=== PATIENT | female | born 1945 | race Caucasian/White ===

== ENCOUNTER 2017-07-29 16:08 | Inpatient (IN) | payer MEDICARE, MEDICAID, OTHER ==
[2017-07-29 18:19] LABS: ADD MAN DIFF? NO
[2017-07-29 18:23] LABS: WHITE BLOOD COUNT 9.9 10^3/ul (4.8-10.8)
[2017-07-29 18:23] LABS: BASOPHIL # 0.1 10^3/ul (0.0-0.1); BASOPHILS % 0.6 % (0.0-2.0); EOSINOPHILS # 0.5 10^3/ul (0.0-0.5); HEMATOCRIT 36.5 % (37.0-47.0); HEMOGLOBIN 10.8 g/dl (12.0-16.0); LYMPHOCYTES # 1.5 10^3/ul (0.8-2.9); MEAN CORPUSCULAR HEMOGLOBIN 26.5 pg (29.0-33.0); MEAN CORPUSCULAR HGB CONC 29.6 g/dl (32.0-37.0); MEAN CORPUSCULAR VOLUME 89.7 fl (82.0-101.0); MEAN PLATELET VOLUME 10.7 fl (7.4-10.4); MONOCYTE # 0.7 10^3/ul (0.3-0.9); MONOCYTES % 7.5 % (0.0-11.0); NEUTROPHIL # 7.1 10^3/ul (1.6-7.5); NEUTROPHILS % 71.7 % (39.0-77.0); PLATELET COUNT 211 10^3/UL (140-415); RED BLOOD COUNT 4.07 10^6/ul (4.20-5.40); RED CELL DISTRIBUTION WIDTH 18.4 % (11.5-14.5)
[2017-07-29] MEDS: FUROSEMIDE 40 MG INJ IV (18:41)
[2017-07-29] MEDS: NITROGLYCERIN 2% 1 GM OINT PKT TD (18:42)
[2017-07-29] MEDS: ASPIRIN 81 MG TAB PO (18:42)
[2017-07-29] MEDS: NITROGLYCERIN (SL) 0.4 MG TAB SL (18:42)
[2017-07-29 18:48] LABS: ANION GAP 13 (8-16); BLOOD UREA NITROGEN 35 mg/dl (7-20); CALCIUM 9.4 mg/dl (8.4-10.2); CARBON DIOXIDE 35 mmol/L (21-31); CHLORIDE 103 mmol/L (97-110); CREATININE 0.96 mg/dl (0.44-1.00); GLUCOSE 154 mg/dl (70-220); POTASSIUM 4.8 mmol/L (3.5-5.1); SODIUM 146 mmol/L (135-144)
[2017-07-29 19:02] LABS: TROPONIN-I < 0.012 ng/ml (0.000-0.120)
[2017-07-29] MEDS ORDERED: ACETAMINOPHEN 325 MG TAB PO (19:30)
[2017-07-29] MEDS ORDERED: ONDANSETRON 4 MG INJ IV ×2 (19:30→21:30)
[2017-07-29] MEDS: LISINOPRIL 10 MG TAB PO (21:53)
[2017-07-29] MEDS ORDERED: GLUCOSE GEL 15 GRAM TUBE PO ×2 (22:15)
[2017-07-29] MEDS ORDERED: GLUCOSE GEL 15 GRAM TUBE BUCCAL (22:15)
[2017-07-29] MEDS ORDERED: GLUCAGON 1 MG INJ IM (22:15)
[2017-07-29] MEDS ORDERED: DEXTROSE 50% 50 ML SYRINGE IV ×2 (22:15)
[2017-07-29 22:48] LABS: CHOLESTEROL 73 mg/dl (100-200)
[2017-07-29 22:48] LABS: CHOL/HDL RATIO 1.9 RATIO; HDL CHOLESTEROL 38 mg/dl (33-92); LDL CHOLESTEROL,CALCULATED 25 mg/dl; TRIGLYCERIDES 51 mg/dl (0-149)
[2017-07-29] MEDS: GABAPENTIN 300 MG CAP PO (22:53)
[2017-07-29] MEDS: APIXABAN 5 MG TABLET PO (22:54)
[2017-07-29 22:59] LABS: TROPONIN-I 0.013 ng/ml (0.000-0.120)
[2017-07-29 23:06] LABS: FREE T4 (FREE THYROXINE) 1.13 ng/dl (0.78-2.44)
[2017-07-30 00:17] LABS: CREATINE KINASE 31 IU/L (23-200)
[2017-07-30 00:28] LABS: CK INDEX 2.5; CK-MB 0.77 ng/ml (0.0-2.4); TROPONIN-I 0.013 ng/ml (0.000-0.120)
[2017-07-30] MEDS: ACCU-CHEK XX (02:03)
[2017-07-30] MEDS: FUROSEMIDE 20 MG TAB PO ×2 (05:55→17:54)
[2017-07-30 06:49] LABS: MAGNESIUM 1.4 mg/dl (1.7-2.5)
[2017-07-30 06:50] LABS: PHOSPHORUS 4.6 mg/dl (2.5-4.9)
[2017-07-30 06:52] LABS: CK INDEX 2.6; CREATINE KINASE 27 IU/L (23-200); TROPONIN-I 0.014 ng/ml (0.000-0.120)
[2017-07-30] MEDS: POTASSIUM CHLORIDE (SR) 20 MEQ TAB PO (08:36)
[2017-07-30] MEDS: ASPIRIN (EC) 81 MG TAB PO (08:36)
[2017-07-30] MEDS: APIXABAN 5 MG TABLET PO ×2 (08:36→20:40)
[2017-07-30] MEDS: DILTIAZEM (CD) 120 MG CAP PO (08:37)
[2017-07-30] MEDS ORDERED: ENOXAPARIN 40 MG/0.4 ML SYG SC (09:00)
[2017-07-30] MEDS: LISINOPRIL 10 MG TAB PO ×2 (09:30→20:40)
[2017-07-30] MEDS: INSULIN ASPART [NOVOLOG] 3 ML PEN SC ×4 (09:47→20:50)
[2017-07-30 13:15] LABS: INR 1.44; PROTIME 17.8 Sec (11.9-14.9); PT RATIO 1.4
[2017-07-30 13:16] LABS: PARTIAL THROMBOPLASTIN TIME 41.1 Sec (25.0-35.0)
[2017-07-30 13:49] LABS: B-TYPE NATRIURETIC PEPTIDE 8390 PG/ML (0-125)
[2017-07-30] MEDS: MAGNESIUM SULFATE 2 GM/50 ML 50 ML IVPB (16:31)
[2017-07-30] MEDS: ATORVASTATIN 40 MG TAB PO (20:39)
[2017-07-30] MEDS: GABAPENTIN 300 MG CAP PO (20:40)
[2017-07-31] MEDS: ACCU-CHEK XX (02:00)
[2017-07-31] MEDS: FUROSEMIDE 20 MG TAB PO ×2 (05:55→17:30)
[2017-07-31 07:28] LABS: ADD MAN DIFF? NO
[2017-07-31 07:37] LABS: BASOPHILS % 0.5 % (0.0-2.0); EOSINOPHILS # 0.3 10^3/ul (0.0-0.5); EOSINOPHILS % 3.7 % (0.0-7.0); HEMATOCRIT 32.6 % (37.0-47.0); HEMOGLOBIN 9.6 g/dl (12.0-16.0); LYMPHOCYTES % 13.6 % (15.0-51.0); MEAN CORPUSCULAR HEMOGLOBIN 26.4 pg (29.0-33.0); MEAN CORPUSCULAR HGB CONC 29.4 g/dl (32.0-37.0); MEAN CORPUSCULAR VOLUME 89.6 fl (82.0-101.0); MEAN PLATELET VOLUME 12.5 fl (7.4-10.4); MONOCYTE # 0.6 10^3/ul (0.3-0.9); MONOCYTES % 8.6 % (0.0-11.0); NEUTROPHIL # 5.5 10^3/ul (1.6-7.5); NEUTROPHILS % 73.3 % (39.0-77.0); PLATELET COUNT 162 10^3/UL (140-415); RED BLOOD COUNT 3.64 10^6/ul (4.20-5.40); RED CELL DISTRIBUTION WIDTH 18.3 % (11.5-14.5)
[2017-07-31 07:37] LABS: WHITE BLOOD COUNT 7.5 10^3/ul (4.8-10.8)
[2017-07-31 08:07] LABS: ANION GAP 11 (8-16); BLOOD UREA NITROGEN 35 mg/dl (7-20); CALCIUM 8.6 mg/dl (8.4-10.2); CARBON DIOXIDE 38 mmol/L (21-31); CHLORIDE 101 mmol/L (97-110); GLUCOSE 120 mg/dl (70-220); POTASSIUM 4.4 mmol/L (3.5-5.1); SODIUM 146 mmol/L (135-144)
[2017-07-31 08:08] LABS: MAGNESIUM 1.7 mg/dl (1.7-2.5)
[2017-07-31] MEDS: INSULIN ASPART [NOVOLOG] 3 ML PEN SC ×4 (08:10→20:40)
[2017-07-31] MEDS: APIXABAN 5 MG TABLET PO ×2 (09:33→20:33)
[2017-07-31] MEDS: DILTIAZEM (CD) 120 MG CAP PO (09:33)
[2017-07-31] MEDS: LISINOPRIL 10 MG TAB PO (09:34)
[2017-07-31] MEDS: POTASSIUM CHLORIDE (SR) 20 MEQ TAB PO (09:34)
[2017-07-31] MEDS: ASPIRIN (EC) 81 MG TAB PO (09:34)
[2017-07-31 18:30] LABS: AADO2 Arterial 70.6 mmHg (7.0-24.0); Arterial Base Excess 6.8 mmol/L (-3.0-3); Arterial Blood Gas Oxygen Sat 95.7 mmHG (95.0-98.0); Arterial Fraction of Oxyhgb 94.5 % (93.0-99.0); Arterial HCO3 32.5 mmol/L (22.0-26.0); Arterial MetHb 0.3 % (0.0-1.5); Arterial Total Hemglobin 11.1 g/dl (12.0-18.0); Arterial pCO2 51.7 mmhg (35-45); MODE NASAL CANNULA; Site Right Radial
[2017-07-31 18:59] LABS: ADD UMIC YES; UR ASCORBIC ACID NEGATIVE (NEGATIVE); UR BACTERIA FEW /HPF (NONE SEEN); UR BILIRUBIN (Dip) NEGATIVE (NEGATIVE); UR BLOOD (Dip) 2+ mg/dL (NEGATIVE); UR CLARITY TURBID (CLEAR); UR COLOR YELLOW (YELLOW); UR GLUCOSE (Dip) NEGATIVE (NEGATIVE); UR KETONES (Dip) NEGATIVE (NEGATIVE); UR LEUKOCYTE ESTERASE (Dip) 2+ Leu/ul (NEGATIVE); UR NITRITE (Dip) NEGATIVE (NEGATIVE); UR RBC 19 /HPF (0-5); UR SQUAMOUS EPITHELIAL CELL FEW /HPF (FEW); UR TOTAL PROTEIN (Dip) 3+ mg/dl (NEGATIVE); UR UROBILINOGEN (Dip) NEGATIVE (NEGATIVE); UR WBC 55 /HPF (0-5)
[2017-07-31] MEDS: ATORVASTATIN 40 MG TAB PO (20:32)
[2017-07-31] MEDS: GABAPENTIN 300 MG CAP PO (20:32)
[2017-07-31] MEDS: LISINOPRIL 20 MG TAB PO (20:33)
[2017-08-01] MEDS: ACCU-CHEK XX (02:00)
[2017-08-01] MEDS: hydrALAzine 20 MG INJ IV (02:16)
[2017-08-01] MEDS: ZOLPIDEM 5 MG TAB PO (02:17)
[2017-08-01] MEDS: ACETAMINOPHEN 325 MG TAB PO ×2 (02:17→11:16)
[2017-08-01] MEDS: FUROSEMIDE 20 MG TAB PO ×2 (06:41→18:21)
[2017-08-01 07:38] LABS: ADD MAN DIFF? NO
[2017-08-01 07:42] LABS: BASOPHIL # 0.1 10^3/ul (0.0-0.1); BASOPHILS % 0.6 % (0.0-2.0); EOSINOPHILS # 0.5 10^3/ul (0.0-0.5); EOSINOPHILS % 5.5 % (0.0-7.0); HEMATOCRIT 34.1 % (37.0-47.0); HEMOGLOBIN 10.2 g/dl (12.0-16.0); LYMPHOCYTES # 1.3 10^3/ul (0.8-2.9); LYMPHOCYTES % 14.2 % (15.0-51.0); MEAN CORPUSCULAR HEMOGLOBIN 26.7 pg (29.0-33.0); MEAN CORPUSCULAR HGB CONC 29.9 g/dl (32.0-37.0); MEAN CORPUSCULAR VOLUME 89.3 fl (82.0-101.0); MEAN PLATELET VOLUME 10.9 fl (7.4-10.4); MONOCYTE # 0.7 10^3/ul (0.3-0.9); MONOCYTES % 7.5 % (0.0-11.0); NEUTROPHIL # 6.7 10^3/ul (1.6-7.5); NEUTROPHILS % 71.9 % (39.0-77.0); PLATELET COUNT 180 10^3/UL (140-415); RED BLOOD COUNT 3.82 10^6/ul (4.20-5.40); RED CELL DISTRIBUTION WIDTH 18.1 % (11.5-14.5)
[2017-08-01 07:42] LABS: WHITE BLOOD COUNT 9.4 10^3/ul (4.8-10.8)
[2017-08-01 08:12] LABS: AADO2 Arterial 53.7 mmHg (7.0-24.0); Allen Test ACCEPTAB; Arterial Base Excess 12.4 mmol/L (-3.0-3); Arterial Blood Gas Oxygen Sat 93.9 mmHG (95.0-98.0); Arterial COHb 0.6 % (0.0-3.0); Arterial Fraction of Oxyhgb 93.1 % (93.0-99.0); Arterial HCO3 39.8 mmol/L (22.0-26.0); Arterial MetHb 0.2 % (0.0-1.5); Arterial pCO2 70.1 mmhg (35-45); BLOOD UREA NITROGEN 39 mg/dl (7-20); CALCIUM 8.8 mg/dl (8.4-10.2); CHLORIDE 98 mmol/L (97-110); CREATININE 0.94 mg/dl (0.44-1.00); GLUCOSE 176 mg/dl (70-220); MODE NASAL CANNULA; POTASSIUM 4.3 mmol/L (3.5-5.1); SODIUM 145 mmol/L (135-144); Site Right Radial
[2017-08-01 08:22] LABS: CARBON DIOXIDE 42 mmol/L (21-31)
[2017-08-01 08:23] LABS: ANION GAP 9 (8-16)
[2017-08-01] MEDS: APIXABAN 5 MG TABLET PO ×2 (08:36→21:46)
[2017-08-01] MEDS: ASPIRIN (EC) 81 MG TAB PO (08:36)
[2017-08-01] MEDS: LISINOPRIL 20 MG TAB PO ×2 (08:36→21:47)
[2017-08-01] MEDS: DILTIAZEM (CD) 120 MG CAP PO (08:36)
[2017-08-01] MEDS: POTASSIUM CHLORIDE (SR) 20 MEQ TAB PO (08:36)
[2017-08-01] MEDS: INSULIN ASPART [NOVOLOG] 3 ML PEN SC ×4 (08:47→21:51)
[2017-08-01] MEDS: DIPHENHYDRAMINE 50 MG CAP PO (21:46)
[2017-08-01] MEDS: ATORVASTATIN 40 MG TAB PO (21:47)
[2017-08-01] MEDS: GABAPENTIN 300 MG CAP PO (21:47)
[2017-08-02] MEDS: INSULIN DETEMIR [LEVEMIR] 3ML CART SC ×2 (00:06→22:55)
[2017-08-02] MEDS: ACCU-CHEK XX (03:12)
[2017-08-02] MEDS: FUROSEMIDE 20 MG TAB PO ×2 (05:38→17:45)
[2017-08-02] MEDS: hydrALAzine 20 MG INJ IV (05:39)
[2017-08-02] MEDS: ACETAMINOPHEN 325 MG TAB PO (05:42)
[2017-08-02 06:22] LABS: ADD MAN DIFF? NO; BASOPHIL # 0.1 10^3/ul (0.0-0.1); BASOPHILS % 0.7 % (0.0-2.0); EOSINOPHILS # 0.6 10^3/ul (0.0-0.5); EOSINOPHILS % 6.4 % (0.0-7.0); HEMATOCRIT 34.2 % (37.0-47.0); HEMOGLOBIN 10.1 g/dl (12.0-16.0); LYMPHOCYTES # 1.4 10^3/ul (0.8-2.9); LYMPHOCYTES % 13.7 % (15.0-51.0); MEAN CORPUSCULAR HEMOGLOBIN 26.6 pg (29.0-33.0); MEAN CORPUSCULAR HGB CONC 29.5 g/dl (32.0-37.0); MEAN PLATELET VOLUME 11.1 fl (7.4-10.4); MONOCYTE # 0.8 10^3/ul (0.3-0.9); MONOCYTES % 7.7 % (0.0-11.0); NEUTROPHIL # 7.1 10^3/ul (1.6-7.5); NEUTROPHILS % 71.3 % (39.0-77.0); PLATELET COUNT 190 10^3/UL (140-415); RED CELL DISTRIBUTION WIDTH 17.9 % (11.5-14.5)
[2017-08-02 07:01] LABS: ANION GAP 13 (8-16); BLOOD UREA NITROGEN 48 mg/dl (7-20); CALCIUM 8.3 mg/dl (8.4-10.2); CARBON DIOXIDE 39 mmol/L (21-31); CHLORIDE 97 mmol/L (97-110); GLUCOSE 177 mg/dl (70-220); POTASSIUM 4.7 mmol/L (3.5-5.1); SODIUM 144 mmol/L (135-144)
[2017-08-02] MEDS: POTASSIUM CHLORIDE (SR) 20 MEQ TAB PO (08:08)
[2017-08-02] MEDS: LISINOPRIL 20 MG TAB PO ×2 (08:12→20:42)
[2017-08-02] MEDS: APIXABAN 5 MG TABLET PO ×2 (08:12→20:40)
[2017-08-02] MEDS: ASPIRIN (EC) 81 MG TAB PO (08:13)
[2017-08-02] MEDS: DILTIAZEM (CD) 120 MG CAP PO (08:13)
[2017-08-02] MEDS: INSULIN ASPART [NOVOLOG] 3 ML PEN SC ×4 (08:17→20:49)
[2017-08-02] MEDS: metFORMIN 500 MG TAB GTB (17:45)
[2017-08-02] MEDS: GABAPENTIN 300 MG CAP PO (20:40)
[2017-08-02] MEDS: DIPHENHYDRAMINE 50 MG CAP PO (20:40)
[2017-08-02] MEDS: ATORVASTATIN 20 MG TAB PO (20:41)
[2017-08-03] MEDS: ACCU-CHEK XX (02:46)
[2017-08-03] MEDS: FUROSEMIDE 20 MG TAB PO ×2 (05:15→17:16)
[2017-08-03 06:55] LABS: ADD MAN DIFF? NO
[2017-08-03 06:57] LABS: BASOPHIL # 0.1 10^3/ul (0.0-0.1); BASOPHILS % 0.9 % (0.0-2.0); EOSINOPHILS # 0.6 10^3/ul (0.0-0.5); EOSINOPHILS % 5.2 % (0.0-7.0); HEMATOCRIT 34.8 % (37.0-47.0); HEMOGLOBIN 10.2 g/dl (12.0-16.0); LYMPHOCYTES # 1.5 10^3/ul (0.8-2.9); LYMPHOCYTES % 13.4 % (15.0-51.0); MEAN CORPUSCULAR HEMOGLOBIN 26.2 pg (29.0-33.0); MEAN CORPUSCULAR HGB CONC 29.3 g/dl (32.0-37.0); MEAN CORPUSCULAR VOLUME 89.2 fl (82.0-101.0); MEAN PLATELET VOLUME 11.4 fl (7.4-10.4); MONOCYTE # 0.9 10^3/ul (0.3-0.9); MONOCYTES % 7.8 % (0.0-11.0); NEUTROPHIL # 8.1 10^3/ul (1.6-7.5); NEUTROPHILS % 72.4 % (39.0-77.0); PLATELET COUNT 199 10^3/UL (140-415)
[2017-08-03 06:57] LABS: WHITE BLOOD COUNT 11.2 10^3/ul (4.8-10.8)
[2017-08-03 07:23] LABS: BLOOD UREA NITROGEN 54 mg/dl (7-20); CALCIUM 8.9 mg/dl (8.4-10.2); CHLORIDE 98 mmol/L (97-110); GLUCOSE 187 mg/dl (70-220); POTASSIUM 4.8 mmol/L (3.5-5.1); SODIUM 144 mmol/L (135-144)
[2017-08-03 07:29] LABS: ANION GAP 11 (8-16)
[2017-08-03 07:32] LABS: CARBON DIOXIDE 40 mmol/L (21-31)
[2017-08-03] MEDS: POTASSIUM CHLORIDE (SR) 20 MEQ TAB PO (08:12)
[2017-08-03] MEDS: ASPIRIN (EC) 81 MG TAB PO (08:13)
[2017-08-03] MEDS: metFORMIN 500 MG TAB GTB ×2 (08:13→17:16)
[2017-08-03] MEDS: DILTIAZEM (CD) 120 MG CAP PO (08:13)
[2017-08-03] MEDS: LINAGLIPTIN 5 MG TABLET PO (08:14)
[2017-08-03] MEDS: APIXABAN 5 MG TABLET PO ×2 (08:14→20:52)
[2017-08-03] MEDS: LISINOPRIL 20 MG TAB PO ×2 (08:14→20:53)
[2017-08-03] MEDS: INSULIN ASPART [NOVOLOG] 3 ML PEN SC ×4 (08:29→20:53)
[2017-08-03] MEDS: ACETAMINOPHEN 325 MG TAB PO ×2 (11:13→18:27)
[2017-08-03] MEDS: VENLAFAXINE (XR) 75 MG CAP PO (16:50)
[2017-08-03] MEDS: DIPHENHYDRAMINE 50 MG CAP PO (20:52)
[2017-08-03] MEDS: GABAPENTIN 300 MG CAP PO (20:52)
[2017-08-03] MEDS: ATORVASTATIN 20 MG TAB PO (20:52)
[2017-08-03] MEDS: INSULIN DETEMIR [LEVEMIR] 3ML CART SC (21:11)
[2017-08-04] MEDS: ACCU-CHEK XX (02:00)
[2017-08-04] MEDS: FUROSEMIDE 20 MG TAB PO ×2 (06:04→16:58)
[2017-08-04 07:35] LABS: ADD MAN DIFF? NO
[2017-08-04 07:39] LABS: BASOPHIL # 0.1 10^3/ul (0.0-0.1); BASOPHILS % 0.9 % (0.0-2.0); EOSINOPHILS # 0.7 10^3/ul (0.0-0.5); EOSINOPHILS % 7.3 % (0.0-7.0); HEMATOCRIT 34.6 % (37.0-47.0); HEMOGLOBIN 10.2 g/dl (12.0-16.0); LYMPHOCYTES # 1.7 10^3/ul (0.8-2.9); LYMPHOCYTES % 17.6 % (15.0-51.0); MEAN CORPUSCULAR HEMOGLOBIN 26.4 pg (29.0-33.0); MEAN CORPUSCULAR HGB CONC 29.5 g/dl (32.0-37.0); MEAN CORPUSCULAR VOLUME 89.4 fl (82.0-101.0); MEAN PLATELET VOLUME 10.9 fl (7.4-10.4); MONOCYTE # 0.8 10^3/ul (0.3-0.9); MONOCYTES % 8.7 % (0.0-11.0); NEUTROPHIL # 6.1 10^3/ul (1.6-7.5); NEUTROPHILS % 65.2 % (39.0-77.0); PLATELET COUNT 203 10^3/UL (140-415); RED BLOOD COUNT 3.87 10^6/ul (4.20-5.40)
[2017-08-04 07:39] LABS: WHITE BLOOD COUNT 9.4 10^3/ul (4.8-10.8)
[2017-08-04] MEDS: INSULIN ASPART [NOVOLOG] 3 ML PEN SC ×3 (07:55→16:54)
[2017-08-04 08:08] LABS: ANION GAP 13 (8-16); BLOOD UREA NITROGEN 64 mg/dl (7-20); CALCIUM 8.8 mg/dl (8.4-10.2); CARBON DIOXIDE 38 mmol/L (21-31); CHLORIDE 98 mmol/L (97-110); CREATININE 0.98 mg/dl (0.44-1.00); GLUCOSE 104 mg/dl (70-220); POTASSIUM 4.4 mmol/L (3.5-5.1); SODIUM 145 mmol/L (135-144)
[2017-08-04] MEDS: LINAGLIPTIN 5 MG TABLET PO (08:49)
[2017-08-04] MEDS: metFORMIN 500 MG TAB GTB ×2 (08:49→16:54)
[2017-08-04] MEDS: DILTIAZEM (CD) 120 MG CAP PO (08:52)
[2017-08-04] MEDS: ASPIRIN (EC) 81 MG TAB PO (09:00)
[2017-08-04] MEDS: POTASSIUM CHLORIDE (SR) 20 MEQ TAB PO (09:00)
[2017-08-04] MEDS: APIXABAN 5 MG TABLET PO (09:01)
[2017-08-04] MEDS: ACETAMINOPHEN 325 MG TAB PO (09:01)
[2017-08-04] MEDS: LISINOPRIL 20 MG TAB PO (09:03)
[2017-08-04] MEDS: VENLAFAXINE (XR) 75 MG CAP PO (12:38)
== END 2017-08-04 18:52 | disposition home or self-care (01) | DRG 291 ==
LOC: TEL 19:22 → E/R 16:08 → TEL 07-30 17:11
DX: I11.0 Hypertensive heart disease with heart failure (principal); J96.22 Acute and chronic respiratory failure with hypercapnia; Z68.42 Body mass index [BMI] 45.0-49.9, adult; I50.23 Acute on chronic systolic (congestive) heart failure; E11.9 Type 2 diabetes mellitus without complications; I48.91 Unspecified atrial fibrillation; G47.33 Obstructive sleep apnea (adult) (pediatric); E78.5 Hyperlipidemia, unspecified; I42.9 Cardiomyopathy, unspecified; E66.9 Obesity, unspecified; E83.42 Hypomagnesemia; Z79.02 Long term (current) use of antithrombotics/antiplatelets
CPT/HCPCS: 36415; 36600; 71045; 80048; 80061; 81001; 82550; 82553; 82803; 82962; 83036; 83735; 83880; 84100; 84439; 84443; 84484; 85025; 85610; 85730; 87086; 93005; 93306; 93970; 94660; 96372; 96374; 97164; 99285-25; G0378